=== PATIENT | male | born 1995 | race Caucasian/White ===

== ENCOUNTER 2018-05-19 21:57 | Emergency (ER) | END 2018-05-20 00:04 | disposition home or self-care (01) ==

== ENCOUNTER 2018-08-29 11:00 | Emergency (ER) | payer OTHER ==
[~2018-08-29] VITALS: Ht 167.6 cm; Wt 80.3 kg
[~2018-08-29 11:00] MED LIST: DOCU-144 PO
[2018-08-29 11:26] VITALS: BP 149/69; PULSE 73; RESP 20; Ht 167.6 cm; Wt 80.3 kg
[2018-08-29] MEDS ORDERED: HYDROCODONE/APAP (5/325) TAB PO ONE (13:00)
[2018-08-29] MEDS ORDERED: LIDOCAINE 4% CR TOP ONE (13:00)
[2018-08-29] MEDS ORDERED: LIDOCAINE 1% (MDV) 20 ML INJ SC ONE (13:00)
--- NOTE | 2018-08-29 13:05 | ERD ---
ER Documentation Chief Complaint Chief Complaint Complains of laceration to the left foot great toe HPI 23-year-old male presents with complaint of ingrown toenail on the left great toe. States that he has recurrent episodes of this. Recently had a toenail removal done 6 months ago but it grew back ingrown. Says that he tried to remove part of the toenail himself but ended up irritating the tissue. States that he is concerned about tetanus and is not up-to-date on his tetanus vaccine. Denies fever, chills, numbness, tingling. Denies past medical history. Denies allergies. Denies medications. Denies surgeries. Denies alcohol, tobacco, drug use. Up to date on vaccines. ROS All systems reviewed and are negative except as per history of present illness. Medications Home Meds Active Scripts Ibuprofen* (Motrin*) 600 Mg Tab, 600 MG PO Q6 for pain, #30 TAB Prov:JONO RUFF 08/29/18 Hydrocodone/Acetaminophen ([place] 5-325 Tablet) 1 Each Tablet, 1 TAB PO Q6H PRN for PAIN, #10 TAB Prov:JONO RUFF 08/29/18 Docusate Sodium* (Colace*) 100 Mg Capsule, 100 MG PO TID, #30 CAP Prov:LESLIE CONWAY MD 05/19/18 Allergies Allergies: Coded Allergies: No Known Allergy (Verified , 05/19/18) PMhx/Soc History of Surgery: No Anesthesia Reaction: No Hx Neurological Disorder: No Hx Respiratory Disorders: No Hx Cardiac Disorders: No Hx Psychiatric Problems: No Hx Miscellaneous Medical Probl: No Hx Alcohol Use: No Hx Substance Use: No Hx Tobacco Use: No FmHx Family History: No diabetes, No coronary disease, No other Physical Exam Vitals Vital Signs Date Temp Pulse Resp B/P (MAP) Pulse Ox O2 O2 Flow FiO2 Time Delivery Rate 08/29/18 98.2 73 20 149/69 99 11:26 (95) Physical Exam Const: No acute distress Head: Atraumatic Eyes: Normal Conjunctiva ENT: Normal External Ears, Nose and Mouth. Neck: Full range of motion. No meningismus. Resp: Clear to auscultation bilaterally Cardio: Regular rate and rhythm, no murmurs Left great toe: Ingrown toenail light of the left great toe. Lateral aspect of toe is mildly edematous and erythematous without any discharge. Sensation is intact. Neur: Awake and alert Psych: Normal Mood and Affect Results 24 hrs Current Medications Medications Dose Sig/Maryam Start Time Status Last (Trade) Ordered Route PRN Stop Time Admin Dose Reason Admin Lidocaine 20 ml ONCE ONCE 08/29/18 DC (Xylocaine SC 13:00 1% (Mdv) 20 08/29/18 13:02 ml) Lidocaine 1 applic ONCE ONCE 08/29/18 DC 08/29/18 (Lmx 4% Plus) TOP 13:00 13:15 08/29/18 13:02 1 tab ONCE ONCE 08/29/18 DC 08/29/18 Acetaminophen PO 13:00 13:14 / 08/29/18 13:02 Hydrocodone Bitart ([place] (5/325)) Diphtheria/ 0.5 ml ONCE ONCE 08/29/18 DC 08/29/18 Tetanus/Acell IM* 13:30 13:15 Pertussis 08/29/18 13:31 (Adacel) Bacitracin/ 1 applic ONCE ONCE 08/29/18 08/29/18 Polymyxin B TOP 14:30 14:25 Sulfate 08/29/18 14:31 (Polysporin Oint) Procedures/MDM Toenail Removal by me: Anesthesia: 1% lidocaine Digital Block Location: Left great toe Technique: from nail bed, vertical split, twisting towards remaining nail. Packing: Non-adherent dressing applied Complications: None Recommend bid dressing changes and warm water soaks. 23-year-old male presents with complaint of ingrown toenail on the left great toe. States that he has recurrent episodes of this. Recently had a toenail removal done 6 months ago but it grew back ingrown. Says that he tried to remove part of the toenail himself but ended up irritating the tissue. States that he is concerned about tetanus and is not up-to-date on his tetanus vaccine. Denies fever, chills, numbness, tingling. Denies past medical history. Denies allergies. Denies medications. Denies surgeries. Denies alcohol, tobacco, drug use. Up to date on vaccines. Toenail removal performed without complication. Patient advised to follow-up 2 days for wound check. I have low suspicion for neurovascular compromise, infection, or any other complication. In addition, since patient was unsure regarding his tetanus status and since patient stated that he had caused an abrasion to the toe by picking at it, patient was given Tdap. Patient discharged with strict ER precautions. Patient advised to follow up with PMD. All questions answered at discharge. Departure Diagnosis: Primary Impression: Ingrown toenail Condition: Stable JONO RUFF Aug 29, 2018 13:05
[2018-08-29] MEDS ORDERED: DIPHTH/TET/ACEL PERTUSS (ADULT) 0.5 ML VIAL IM* ONE (13:30)
[2018-08-29] MEDS ORDERED: IBUP-1542 PO (14:16)
[2018-08-29] MEDS ORDERED: HYDR-4011 PO (14:16)
[2018-08-29] MEDS ORDERED: BACITRACIN/POLYMYXIN 28.35 GM OINT TOP ONE (14:30)
== END 2018-08-29 14:26 | disposition home or self-care (01) ==
LOC: FTE 11:00
DX: L60.0 Ingrowing nail (principal); Z23 Encounter for immunization
CPT/HCPCS: 11765; 90471; 90715; Z7502; Z7610

== ENCOUNTER 2018-09-03 11:25 | Emergency (ER) | payer OTHER ==
[~2018-09-03] VITALS: Ht 172.7 cm; Wt 79.8 kg
[~2018-09-03 11:25] MED LIST changes: +HYDR-4011 PO; +IBUP-1542 PO
[2018-09-03 11:41] VITALS: BP 125/55; PULSE 62; RESP 18; Ht 172.7 cm; Wt 79.8 kg
--- NOTE | 2018-09-03 14:03 | ERD ---
ER Documentation Chief Complaint Chief Complaint wound check HPI 23-year-old male presents for recheck on ingrown toenail removal 5 days ago. He is concerned that there may be a portion of the nail remaining. He denies any fevers, redness, discharge. ROS All systems reviewed and are negative except as per history of present illness. Medications Home Meds Active Scripts Ibuprofen* (Motrin*) 600 Mg Tab, 600 MG PO Q6 for pain, #30 TAB Prov:JONO RUFF 08/29/18 Hydrocodone/Acetaminophen ([place] 5-325 Tablet) 1 Each Tablet, 1 TAB PO Q6H PRN for PAIN, #10 TAB Prov:JONO RUFF 08/29/18 Docusate Sodium* (Colace*) 100 Mg Capsule, 100 MG PO TID, #30 CAP Prov:LESLIE CONWAY MD 05/19/18 Allergies Allergies: Coded Allergies: No Known Allergy (Verified , 05/19/18) PMhx/Soc History of Surgery: No Anesthesia Reaction: No Hx Neurological Disorder: No Hx Respiratory Disorders: No Hx Cardiac Disorders: No Hx Psychiatric Problems: No Hx Miscellaneous Medical Probl: No Hx Alcohol Use: No Hx Substance Use: No Hx Tobacco Use: No FmHx Family History: No diabetes, No coronary disease, No other Physical Exam Vitals Vital Signs Date Temp Pulse Resp B/P (MAP) Pulse Ox O2 O2 Flow FiO2 Time Delivery Rate 09/03/18 98.0 62 18 125/55 99 11:41 (78) Physical Exam Const: No acute distress Head: Atraumatic Eyes: Normal Conjunctiva ENT: Normal External Ears, Nose and Mouth. Neck: Full range of motion. No meningismus. Resp: Clear to auscultation bilaterally Cardio: Regular rate and rhythm, no murmurs Abd: Soft, non tender, non distended. Normal bowel sounds Skin: No petechiae or rashes Back: No midline or flank tenderness Ext: No cyanosis, or edema. Healing right big toe ingrown nail avulsion area. It may be a small fragment of nail remaining. No erythema, discharge or bony tenderness. Neur: Awake and alert Psych: Normal Mood and Affect Procedures/MDM Using clamps a small portion of nail was removed. Patient tolerated procedure well. There is no signs of infection, ischemia, deficits. She will be discharged home with continuation of wound care and return precautions for fevers, redness, new worsening symptoms. Doubt osteomyelitis no evidence of cellulitis, additional complications. Departure Diagnosis: Primary Impression: Encounter for wound re-check Condition: Stable Patient Instructions: Ingrown Toenail, Excised Additional Instructions: Wound appears to be healing well. Recheck for worsening redness, fevers, discharge, new worsening symptoms. TRACEY GONZALEZ MD Sep 03, 2018 14:03
== END 2018-09-03 14:17 | disposition home or self-care (01) ==
LOC: FTE 11:25
DX: Z48.01 Encounter for change or removal of surgical wound dressing (principal); L60.0 Ingrowing nail
CPT/HCPCS: 11750; Z7502